=== PATIENT | female | born 1960 | race Caucasian/White ===

== ENCOUNTER 2018-09-09 19:11 | Inpatient (IN) | payer MEDICAID ==
[~2018-09-09] VITALS: Ht 157.5 cm; Wt 69.5 kg
[2018-09-09 19:14] VITALS: Ht 157.5 cm; Wt 69.5 kg
[2018-09-09 20:08] LABS: microscopic required? NO
[2018-09-09 20:14] LABS: UA SPECIFIC GRAVITY <=1.005 (1.005-1.035); urine erythrocyte NEGATIVE (NEGATIVE)
[2018-09-09 20:15] LABS: BASOPHIL % 0.4 % (0-2); PLATELET COUNT 221 x10^3mcL (130-400); RED CELL DISTRIBUTION WIDTH 13.7 % (11.5-14.5)
[2018-09-09 20:26] LABS: CALCIUM 9.7 mg/dL (8.5-10.1); CARBON DIOXIDE 29.3 mmol/L (21-32); CHLORIDE SERUM 104 mmol/L (98-107); CREATININE SERUM 0.8 mg/dL (0.6-1.0); GFR1 > 60 mL/min; GLUCOSE SERUM 143 mg/dL (74-106); POTASSIUM SERUM 3.9 mmol/L (3.5-5.1); SODIUM SERUM 143 mmol/L (136-145)
[2018-09-09 20:30] LABS: ALBUMIN 4.2 g/dL (3.4-5.0); ALKALINE PHOSPHATASE 113 U/L (46-116); ALT/SGPT 25 U/L (14-59); AST/SGOT 16 U/L (15-37); BILIRUBIN TOTAL 0.43 mg/dL (0.20-1.00); LIPASE 328 IU/L (73-393); TRIGLYCERIDES 67 mg/dL (<150)
[2018-09-09 20:31] LABS: CHOLESTEROL 212 mg/dL (<200); CHOLESTEROL/HDL RATIO 2.6; HDL CHOLESTEROL 83 mg/dL (40-60); TOTAL PROTEIN, SERUM 8.3 g/dL (6.4-8.2)
[2018-09-09 20:44] LABS: T3 TOTAL 0.84 ng/mL
[2018-09-09 21:04] LABS: FREE T4 1.06 ng/dL (0.76-1.46); FREE THYROXINE INDEX 3.6 ug/dL (1.4-4.5); T4(THYROXINE) 10.6 ug/dL (4.7-13.3)
[2018-09-09] MEDS ORDERED: ZOCOR20 MG PO (21:30)
[2018-09-09] MEDS ORDERED: ZESTRIL20 MG PO (21:30)
[2018-09-09 21:50] LABS: MAGNESIUM 2.5 mg/dL (1.8-2.4); PHOSPHOROUS 3.6 mg/dL (2.5-4.9)
[2018-09-09 22:04] VITALS: BP 175/82
[2018-09-09 23:22] VITALS: BP 141/73
[2018-09-09 23:40] VITALS: BP 146/71
[2018-09-10 05:22] VITALS: BP 147/85
[2018-09-10 06:38] LABS: BASOPHIL % 0.5 % (0-2); PLATELET COUNT 186 x10^3mcL (130-400); RED CELL DISTRIBUTION WIDTH 13.4 % (11.5-14.5)
[2018-09-10 06:55] LABS: CALCIUM 8.8 mg/dL (8.5-10.1); CHLORIDE SERUM 108 mmol/L (98-107); CREATININE SERUM 0.7 mg/dL (0.6-1.0); GFR1 > 60 mL/min; GLUCOSE SERUM 111 mg/dL (74-106); MAGNESIUM 2.1 mg/dL (1.8-2.4); POTASSIUM SERUM 4.1 mmol/L (3.5-5.1); SODIUM SERUM 140 mmol/L (136-145)
[2018-09-10 09:24] VITALS: BP 124/72
[2018-09-10 13:41] VITALS: BP 148/82
[2018-09-10 17:00] VITALS: BP 153/81
[2018-09-10 20:51] VITALS: BP 122/70
[2018-09-10 21:40] LABS: AMPHETAMINE QUAL UR NONE DETECTED (See below)
[2018-09-11 05:45] VITALS: BP 128/74
[2018-09-11 07:03] LABS: BASOPHIL % 0.4 % (0-2); PLATELET COUNT 183 x10^3mcL (130-400); RED CELL DISTRIBUTION WIDTH 13.7 % (11.5-14.5)
[2018-09-11 07:54] LABS: CALCIUM 9.2 mg/dL (8.5-10.1); CHLORIDE SERUM 107 mmol/L (98-107); CREATININE SERUM 0.7 mg/dL (0.6-1.0); GFR1 > 60 mL/min; GLUCOSE SERUM 99 mg/dL (74-106); MAGNESIUM 2.1 mg/dL (1.8-2.4); PHOSPHOROUS 4.3 mg/dL (2.5-4.9); POTASSIUM SERUM 4.1 mmol/L (3.5-5.1); SODIUM SERUM 143 mmol/L (136-145)
[2018-09-11 08:37] VITALS: BP 137/71
[2018-09-11] MEDS ORDERED: NOR5 PO (16:45)
[2018-09-11 17:14] VITALS: BP 131/82
[2018-09-11 17:55] VITALS: BP 120/78
== END 2018-09-11 18:45 | disposition home or self-care (01) | DRG 199 ==
LOC: ED 19:11 → DU 21:12
PROVIDERS: Specialist; ADMIT Internal Medicine
DX: I16.0 Hypertensive urgency (principal); E83.41 Hypermagnesemia; I20.9 Angina pectoris, unspecified; I10 Essential (primary) hypertension; E11.9 Type 2 diabetes mellitus without complications; E78.5 Hyperlipidemia, unspecified; E66.9 Obesity, unspecified; Z68.27 Body mass index [BMI] 27.0-27.9, adult; Z86.73 Personal history of transient ischemic attack (TIA), and cerebral infarction without residual deficits
CPT/HCPCS: 82962; 83880; 84439; 90658; A9500; J2270; J2405; J2785; J7030; Q0092